=== PATIENT | female | born 1995 | race Caucasian/White ===

== ENCOUNTER 2018-11-27 21:38 | Emergency (ER) | payer SELFPAY ==
[2018-11-27] MEDS ORDERED: predniSONE 20 MG TAB ONE ×2 (22:00)
[2018-11-27] MEDS ORDERED: hydrOXYzine 25 MG TAB ONE (22:04)
== END 2018-11-27 22:10 | disposition home or self-care (01) ==
LOC: ERS 21:38
DX: L25.9 Unspecified contact dermatitis, unspecified cause (principal); J45.909 Unspecified asthma, uncomplicated
CPT/HCPCS: 99282; J7512